=== PATIENT | male | born 1995 | race Hispanic/Latino ===

== ENCOUNTER 2020-12-15 11:27 | Emergency (ER) | payer SELFPAY ==
[2020-12-15] MEDS ORDERED: TETANUS & DIPHTHERIA TOX,ADULT 0.5 ML VIAL ONE (12:17)
[2020-12-15] MEDS ORDERED: CEFAZOLIN SODIUM 1 GM/VIAL ONE (12:20)
[2020-12-15] MEDS ORDERED: WATER FOR INJ,STERILE 10 ML ONE (12:21)
--- NOTE | 2020-12-15 12:38 | RAD REPORT ---
EXAM DESCRIPTION: RAD - Hand Left 3 View - 12/15/2020 12:16 pm CLINICAL HISTORY: laceration;Pain COMPARISON: <Comparisons> FINDINGS: Slight tuft fracture is seen involving the first digit. Adjacent soft tissue laceration is present. No radiopaque foreign body.
[2020-12-15] MEDS ORDERED: LIDOCAINE 2% MPF 5 ML VIAL ONE (13:40)
--- NOTE | 2020-12-15 14:29 | EDPHYS ---
Physician Documentation [facility] Name: Maurizio Carpenter Age: 25 yrs Sex: Male : 1995 Arrival Date: 12/15/2020 Time: 11:28 Bed 18 Private MD: ED Physician Augusto Quiles HPI: 12/15 18:57 This 25 yrs old Male presents to ER via Ambulatory with complaints of Finger kdr Injury. 18:57 Mechanism of injury: Mill saw. Associated injuries: The patient sustained left thumb on kdr the latera aspect midway through the nail. Onset: The symptoms/episode began/occurred acutely, suddenly, just prior to arrival. The patient has not experienced similar symptoms in the past. The patient has not recently seen a physician. Historical: - Allergies: 11:38 No Known Allergies; ll1 - PMHx: 11:38 None; ll1 - PSHx: 11:38 None; ll1 - Immunization history:: Last tetanus immunization: up to date Flu vaccine is up to date. - Social history:: Smoking status: Patient denies any tobacco usage or history of. ROS: 18:57 Constitutional: Negative for fever, chills, and weight loss, Eyes: Negative for injury, kdr pain, redness, and discharge. 18:57 MS/extremity: Positive for injury or acute deformity, laceration, pain, tenderness, of the palmar aspect of distal phalanx of left thumb. Exam: 18:57 Constitutional: This is a well developed, well nourished patient who is awake, alert, kdr and in no acute distress. 18:57 Musculoskeletal/extremity: Extremities: grossly normal except: noted in the palmar aspect of distal phalanx of left thumb: decreased ROM, erythema, pain, swelling, tenderness. Vital Signs: 11:38 BP 134 / 89; Pulse 90; Resp 16; Temp 97.6; Pulse Ox 100% ; Weight 72.57 kg; Height 5 ll1 ft. 6 in. (167.64 cm); Pain 0/10; 11:48 BP 132 / 84; Pulse 100; Resp 18; Pulse Ox 99% ; dm14 12:00 BP 116 / 84; Pulse 94; Resp 18; Pulse Ox 99% ; dm14 14:30 BP 134 / 77; Pulse 83; Resp 18; Pulse Ox 98% ; dm14 11:38 Body Mass Index 25.82 (72.57 kg, 167.64 cm) ll1 Laceration: 13:57 Wound Repair of 2cm ( 0.8in ) subcutaneous laceration to left thumb. Irregularly jr8 shaped.. Minimal bleeding noted.. Distal neuro/vascular/tendon intact. Anesthesia: Digital block administered with 4 mls of 2% lidocaine. Wound prep: Extensive cleansing with betadine, Wound irrigation with saline, Wound explored extensively. Skin closed with 3 5-0 Prolene using interrupted sutures and sterile technique. Patient tolerated well. MDM: 14:29 Patient medically screened. kdr 18:57 Data reviewed: vital signs, nurses notes, radiologic studies. Counseling: I had a kdr detailed discussion with the patient and/or guardian regarding: the historical points, exam findings, and any diagnostic results supporting the discharge/admit diagnosis, radiology results, the need for outpatient follow up. 12/15 11:48 Order name: Hand Left 3 View XRAY; Complete Time: 13:07 kdr Administered Medications: 12:23 Drug: Tetanus-Diphtheria Toxoid Adult 0.5 ml {Clarifier Operator: Photos to Photos. Exp: sr5 01/28/2022. Lot #: [id number]. } Route: IM; Site: right deltoid; 12:40 Follow up: Response: No adverse reaction dm14 12:24 Drug: Ancef 1 grams Route: IM; Site: left deltoid; sr5 12:40 Follow up: Response: No adverse reaction dm14 Disposition: 14:23 Co-signature as Attending Physician, Augusto Quiles MD I agree with the assessment and kdr plan of care. Disposition: 12/15/20 14:29 Discharged to Home. Impression: Finger tip laceration - left thumb, tuft fracture. - Condition is Stable. - Discharge Instructions: Laceration Care, Adult, [id number], Nail Bed Laceration. - Prescriptions for Ibuprofen 600 mg Oral Tablet - take 1 tablet by ORAL route every 6 hours As needed take with food; 30 tablet. Keflex 500 mg Oral Capsule - take 1 capsule by ORAL route every 6 hours for 10 days; 40 capsule. - Medication Reconciliation Form, Thank You Letter, Antibiotic Education form. - Follow up: Private Physician; When: 2 - 3 days; Reason: Wound Recheck, If symptoms return, Further diagnostic work-up, Recheck today's complaints, Continuance of care, Re-evaluation by your physician. - Problem is new. - Symptoms have improved. - Notes: You will need sutures out in about 10 - 12 days. Wound check with your doctor in 2-3 days. Or return to the Emergency Department Signatures: Dispatcher [employer] EDMS Augusto Quiles MD MD kdr Josh Barnes PA PA [id number] Ash Michael RN RN sr5 Jaya Beasley RN RN ll1 Kasey Ness RN RN dm14 Corrections: (The following items were deleted from the chart) 14:45 14:29 12/15/2020 14:29 Discharged to Home. Impression: Finger tip laceration - left dm14 thumb, tuft fracture. Condition is Stable. Forms are Medication Reconciliation Form, Thank You Letter, Antibiotic Education, Prescription Opioid Use. Follow up: Private Physician; When: 2 - 3 days; Reason: Wound Recheck, If symptoms return, Further diagnostic work-up, Recheck today's complaints, Continuance of care, Re-evaluation by your physician. Problem is new. Symptoms have improved. kdr
--- NOTE | 2020-12-15 14:29 | ER ---
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 Laceration through tip of nailbed. Bleeding controlled. Tetanus UTD. Coronavirus screen: Client denies travel out of the [place] in the last 14 days. At this time, the client does not indicate any symptoms associated with coronavirus-19. Ebola Screen: Patient denies travel to an Ebola-affected area in the 21 days before illness onset. Initial Sepsis Screen: Does the patient meet any 2 criteria? No. Patient's initial sepsis screen is negative. Does the patient have a suspected source of infection? Yes: Skin breakdown/wound. Risk Assessment: Do you want to hurt yourself or someone else? Patient reports no desire to harm self or others. Onset of symptoms was December 15, 2020. 11:38 Method Of Arrival: Ambulatory ll1 11:38 Acuity: JASON 4 ll1 Triage Assessment: 14:45 Injury Description: Laceration. dm14 Historical: - Allergies: 11:38 No Known Allergies; ll1 - PMHx: 11:38 None; ll1 - PSHx: 11:38 None; ll1 - Immunization history:: Last tetanus immunization: up to date Flu vaccine is up to date. - Social history:: Smoking status: Patient denies any tobacco usage or history of. Screenin:40 Abuse screen: Denies threats or abuse. Nutritional screening: No deficits noted. ll1 Tuberculosis screening: No symptoms or risk factors identified. 11:48 Fall Risk None identified. dm14 Assessment: 11:48 General: Appears in no apparent distress. comfortable, Behavior is calm, cooperative, dm14 appropriate for age. Pain:. 11:48 Pain: Complains of pain in Pt has "a little bit" of pain in the left thumb. dm14 Musculoskeletal: Laceration to left thumb. 12:15 Reassessment: Radiology in to X-ray left hand. dm14 14:00 Reassessment: Provider providing lac repair and wound dressing. dm14 Vital Signs: 11:38 BP 134 / 89; Pulse 90; Resp 16; Temp 97.6; Pulse Ox 100% ; Weight 72.57 kg; Height 5 ll1 ft. 6 in. (167.64 cm); Pain 0/10; 11:48 BP 132 / 84; Pulse 100; Resp 18; Pulse Ox 99% ; dm14 12:00 BP 116 / 84; Pulse 94; Resp 18; Pulse Ox 99% ; dm14 14:30 BP 134 / 77; Pulse 83; Resp 18; Pulse Ox 98% ; dm14 11:38 Body Mass Index 25.82 (72.57 kg, 167.64 cm) ll1 ED Course: 11:28 Patient arrived in ED. ds1 11:29 Augusto Quiles MD is Attending Physician. kdr 11:34 Arm band placed on Patient placed in an exam room, on a stretcher. ll1 11:40 Triage completed. ll1 11:40 Patient has correct armband on for positive identification. Bed in low position. Call ll1 light in reach. Side rails up X 1. 11:47 Kasey Ness, RN is Primary Nurse. dm14 12:16 Hand Left 3 View XRAY In Process Unspecified. EDMS 14:30 Assist provider with laceration repair on left thumb. Patient did not have IV access dm14 during this emergency room visit. Administered Medications: 12:23 Drug: Tetanus-Diphtheria Toxoid Adult 0.5 ml {Legal Analyst: [employer]. Exp: sr5 01/28/2022. Lot #: [id number]. } Route: IM; Site: right deltoid; 12:40 Follow up: Response: No adverse reaction dm14 12:24 Drug: Ancef 1 grams Route: IM; Site: left deltoid; sr5 12:40 Follow up: Response: No adverse reaction dm14 Outcome: 14:29 Discharge ordered by . kdr 14:30 Condition: stable dm14 14:30 Discharge instructions given to patient, Instructed on discharge instructions, follow up and referral plans. medication usage, Demonstrated understanding of instructions, follow-up care, medications. 14:45 Discharged to home ambulatory. dm14 14:45 Patient left the ED. dm14 Signatures: Dispatcher [employer] EDKY Augusto Quiles MD MD kdr Sanford, Demi ds1 Ash Michael, RN RN sr5 Jaya Beasley, RN RN ll1 Kasey Ness, RN RN dm14
[2020-12-15 14:59] VITALS: TEMP 97.6
[2020-12-15 15:02] VITALS: BP 134/77; O2SAT 98
== END 2020-12-15 14:45 | disposition home or self-care (01) ==
LOC: ER 11:27
PROC: 0HQGXZZ Repair Left Hand Skin, External Approach (ICD-10-PCS; principal; 2020-12-15)
DX: S61.112A Laceration without foreign body of left thumb with damage to nail, initial encounter (principal); S62.522A Displaced fracture of distal phalanx of left thumb, initial encounter for closed fracture; Z23 Encounter for immunization; W31.2XXA Contact with powered woodworking and forming machines, initial encounter
CPT/HCPCS: 90471; 90714; 96372; 99284; J0690